=== PATIENT | male | born 1990 | race Caucasian/White ===

== ENCOUNTER 2021-04-12 14:38 | Emergency (ER) | payer MEDICAID ==
[~2021-04-12] VITALS: Ht 177.8 cm; Wt 108.9 kg
[2021-04-12] MEDS ORDERED: GABAPENTIN600 M1 PO (15:01)
[2021-04-12] MEDS ORDERED: BIKTARVY 50-201 EACH PO ×2 (15:02→15:13)
[2021-04-12] MEDS ORDERED: NEURONTIN600 MG PO (15:13)
[2021-04-12 15:22] VITALS: BP 158/96
== END 2021-04-12 15:23 | disposition home or self-care (01) ==
LOC: M.ERS 14:38
DX: B20 Human immunodeficiency virus [HIV] disease (principal); Z76.0 Encounter for issue of repeat prescription; Z90.49 Acquired absence of other specified parts of digestive tract; Z79.899 Other long term (current) drug therapy; Z88.5 Allergy status to narcotic agent